=== PATIENT | male | born 1945 | race African-American/Black ===

== ENCOUNTER → 2019-01-24 | Day surgery (SDC) | payer MEDICARE ==
[~2019-01-24] MED LIST: ASPIRIN81 MG PO; CEFTRIAXONE SOD 1 GM/NS 50 ML 50 ML IV ONE; DEXAMETHASONE SOD PHOS INJ 4 MG/ML VIAL ONE; FENTANYL CITRATE/PF 100MCG/2 ML INJ ONE; GENTAMICIN 120MG/NS 100ML 100 ML ONE; LIDOCAINE HCL 2% LOCAL INJ 5 ML SDV VIAL INJ ONE; METFORMIN HCL500 MG PO; ONDANSETRON HCL INJ 2MG/ML 2ML 2 MG/ML VIAL ONE; PROPOFOL IV EMULSION 10 MG/ML 20 ML VIAL ONE; SEVOFLURANE INHAL SOLN 250 ML PEN BTL ONE; TERBINAFINE HC250 MG PO
--- OUTSIDE RECORDS SUMMARY | 2019-01-24 10:18 | XMS REPORT | Clinical Summary ---
Author Author [facility] Address Unknown Phone Unavailable Care Team Providers Care Track Inspector Name Role Phone Zohra Luna MD PCP Allergies Not on File Medications Not on file Active Problems Not on file Encounters Care Team Description Date Type Specialty Jay Sellers MD BPH with urinary obstruction (Primary Dx); Bladder neck obstruction 01/11/2019 Transcribe Access Orders after 01/23/2018 Social History Date Tobacco Use Types Packs/Day Years Used Never Assessed Sex Assigned at Date Recorded Not on file Industry Job Start Date Occupation Not on file Not on file Not on file Travel End Travel History Travel Start No recent travel history available. Last Filed Vital Signs Not on file Plan of Treatment Health Maintenance Due Date Last Done Comments COLON CANCER SCREENING 1996 SHINGLES VACCINES (#1) 1996 65+ PNEUMOCOCCAL VACCINE 2011 (1 of 2 - PCV13) PNEUMOCOCCAL 2011 POLYSACCHARIDE VACCINE AGE 65 AND OVER INFLUENZA VACCINE 04/12/2019 Procedures Comments Procedure Name Priority Date/Time Associated Diagnosis PROSTATE Routine 01/17/2019 BPH with urinary 11:14 AM CDT obstruction Bladder neck obstruction after 01/23/2018 Results * US Prostate (01/17/2019 11:14 AM CDT) Narrative Performed At EXAMINATION:US PROSTATE [facility] CLINICAL HISTORY:N40.1 Benign prostatic hyperplasia with lower urinary tract symptoms, N13.8 Other obstructive and reflux uropathy, BPH urinary obstructionoveractive bladder obstruction COMPARISON:None. TECHNIQUE: Transrectal ultrasound of the prostate gland is performed. IMPRESSION: The prostate gland measures 8.3 x 6.1 x 6.4 cm, for an estimated volume of 168 cc. There is heterogeneity of the central gland consistent with prostatic hypertrophy. The seminal vesicles appear symmetric and normal. [id number] Procedure Note Interface, Radiology Results Incoming - 01/17/2019 12:47 PM CDT EXAMINATION: US PROSTATE CLINICAL HISTORY: N40.1 Benign prostatic hyperplasia with lower urinary tract symptoms, N13.8 Other obstructive and reflux uropathy, BPH urinary obstruction overactive bladder obstruction COMPARISON: None. TECHNIQUE: Transrectal ultrasound of the prostate gland is performed. IMPRESSION: The prostate gland measures 8.3 x 6.1 x 6.4 cm, for an estimated volume of 168 cc. There is heterogeneity of the central gland consistent with prostatic hypertrophy. The seminal vesicles appear symmetric and normal. [id number] Performing Organization Address City/State/Zipcode Phone Number [facility] [id number] [place] [address] after 01/23/2018 Insurance Payer Benefit Subscriber ID Type Phone Address Plan / Group MEDICARE MEDICARE xxxxxxxxxxx Medicare [place], [place] PART A AND B Advance Directives Patient has advance care planning documents on file. For more information, [facility]ayne senior contact: Audi Duncan [address] [place] [address]
[2019-01-24 15:45] VITALS: BP 144/76
--- NOTE | 2019-01-25 06:43 | Operative Report ---
DATE OF PROCEDURE: 01/24/2019 SURGEON: Jay Sellers MD PREOPERATIVE DIAGNOSES: 1. Benign prostatic hyperplasia. 2. Rule out carcinoma of the prostate. 3. Abnormal PSA. POSTOPERATIVE DIAGNOSES: 1. Benign prostatic hyperplasia. 2. Rule out carcinoma of the prostate. 3. Abnormal PSA. OPERATION: 1. Transrectal ultrasound of the prostate. 2. Transrectal ultrasound-guided needle biopsies. 3. Cystourethroscopy. RESIN MIXER: Yan Alan MD ANESTHETIC: General. DESCRIPTION OF PROCEDURE: Mr. Eaton is a 73-year-old male, who presented with a chief complaint of lower urinary tract obstructive symptoms and elevated PSA. Rectal exam showed an enlarged prostate gland about 120 to 150 g and firm. This patient was placed on the table in the lithotomy position and was prepped and draped in a sterile manner after satisfactory anesthesia. Transrectal ultrasound of the prostate was performed and the prostate measures 7.1 x 7.6 x 6.3 cm with a total volume of 168 mL. There were multiple calcification with post calcification shadowing. There was also multiple hypoechoic areas. Both seminal vesicles were unremarkable. Transrectal ultrasound-guided needle biopsies were obtained from the prostate and from the hypoechoic area to map it for any multifocal carcinoma. This patient was then prepped and draped in a sterile manner. A #23-Moz[place] cystoscope was used and cystourethroscopy was performed and there was an area of stricture at the distal bulbous urethra. This was negotiated without problem. The prostatic urethra was about 6 cm long, bilobar, and occlusive. Cystoscopy was then performed using both right angle and the Foroblique lens and the bladder mucosa was normal. Both ureteral orifices were seen and were in normal position configuration efflux. The bladder was drained. Cystoscope removed and the patient was taken to the recovery room in satisfactory condition. DISCHARGE MEDICATIONS: 1. Cipro 500 mg one twice a day for one week. 2. Ultracet tablet one every 6 to 8 hours p.r.n. and was given 50. He is to return to the office in one week. Jay Sellers MD MA/MONTRELLL /[id number]
== END | disposition home or self-care (01) ==
LOC: OR 10:16
PROVIDERS: ATTEND Specialist
DX: N40.1 Benign prostatic hyperplasia with lower urinary tract symptoms (principal); N13.8 Other obstructive and reflux uropathy; R97.20 Elevated prostate specific antigen [PSA]; E11.9 Type 2 diabetes mellitus without complications; Z79.84 Long term (current) use of oral hypoglycemic drugs; Z79.82 Long term (current) use of aspirin
CPT/HCPCS: 36415; 55700; 76872; 82948; 88305; 93005; J0696; J1100; J1580; J2001; J2405; J2704; 76998; J3010